=== PATIENT | male | born 1990 | race Caucasian/White ===

== ENCOUNTER 2021-03-23 00:15 | Emergency (ER) | payer MEDICAID ==
[~2021-03-23] VITALS: Ht 167.6 cm; Wt 72.6 kg
[2021-03-23 00:30] VITALS: BP_SYST 130
[2021-03-23 01:00] VITALS: BP_SYST 130
--- NOTE | 2021-03-23 01:00 | NUR ---
Patient medically cleared and given written and verbal discharge instructions and verbalizes understanding. ER MD discussed with patient care provided. Patient in stable condition. ID arm band removed. No Rx given. Patient educated on pain management and to follow up with PMD. Pain Scale 0/10. Patient accompanied by CEDRIC Warner to police car.
== END 2021-03-23 01:00 ==
LOC: SED 00:15
DX: S00.81XA Abrasion of other part of head, initial encounter (principal); V49.49XA Driver injured in collision with other motor vehicles in traffic accident, initial encounter; Y93.89 Activity, other specified; Y92.89 Other specified places as the place of occurrence of the external cause; Y99.8 Other external cause status
CPT/HCPCS: 99283